=== PATIENT | female | born 1995 | race Caucasian/White ===

== ENCOUNTER → 2017-09-23 | Outpatient (REF) | payer OTHER ==
[~2017-09-23] MED LIST: HYDR-4309 PO
[2017-09-23 15:53] LABS: PLATELET COUNT, AUTOMATED 342 K/uL (150-450)
== END ==
PROVIDERS: ATTEND Family Medicine
DX: R10.9 Unspecified abdominal pain (principal)
CPT/HCPCS: 82040; 82247; 82310; 82374; 82435; 82565; 82947; 84075; 84132; 84155; 84295; 84450; 84460; 84520; 85025

== ENCOUNTER 2017-09-24 13:44 | Day surgery (SDC) | payer OTHER ==
[2017-09-24] MEDS ORDERED: FAMOTIDINE(*) 20MG/50ML PREMIX 50 ML IVPB ONE (13:50)
[2017-09-24] MEDS ORDERED: PIPERACILLIN/TAZO*3.375GM VIAL 3.375 GM in NS(*) 0.9% 100 ML ADDVANT BAG 100 ML IVPB ONE (13:50)
[2017-09-24] MEDS ORDERED: NORMOSOL R SOLN(*) 1000 ML BAG 1,000 ML IV PRN (13:50)
--- NOTE | 2017-09-24 13:59 | ER Report ---
History and Physical Time Seen By MD: 13:50 HPI/ROS CHIEF COMPLAINT: Right lower quadrant pain HISTORY OF PRESENT ILLNESS: This is a 22-year-old female presents to the emergency department for right lower quadrant pain. Patient was sent from urgent care for a positive appendicitis. Patient states she developed some generalized abdominal pain yesterday was sent home and instructed to return for worsening symptoms. Patient states that her symptoms increased in intensity today and localized to the right side, she didn't present to urgent care again, they did a contrast CT which was positive for appendicitis. Patient was recently sent to the emergency department. Dr. Mathis the general surgeon is aware and will be taking the patient to surgery. Patient has no other complaints , no fevers, no aches, no nausea or vomiting. No chest pain or shortness of breath. Continues to have right lower quadrant pain. Last food intake was at 10: 15, coffee and water. Last food around 8:00 this morning. REVIEW OF SYSTEMS: Constitutional: No fever, no chills. Eyes: No discharge. ENT: No sore throat. Cardiovascular: No chest pain, no palpitations. Respiratory: No cough, no shortness of breath. Gastrointestinal: As above. Genitourinary: No hematuria. Musculoskeletal: No back pain. Skin: No rashes. Neurological: No headache. Allergies: Coded Allergies: No Known Drug Allergies (Unverified , 09/24/17) Home Meds No Active Prescriptions or Reported Meds Past Medical/Surgical History The patient has a past medical and surgical history of wearing glasses, MRSA infection, abscess in right axilla. Reviewed Nurses Notes: Yes Physical Exam General Appearance: The patient is alert, has no immediate need for airway protection and no signs of toxicity. Eyes: Pupils equal and round no pallor or injection. ENT, Mouth: Mucous membranes are moist. Respiratory: There are no retractions, lungs are clear to auscultation. Cardiovascular: Regular rate and rhythm, no murmurs, clicks or rubs. Gastrointestinal: Abdomen is soft and tenderness to McBurney's point, no masses , bowel sounds normal. Neurological: Alert and oriented 4. Moving all extremities. Following all commands. No focal neuro deficits. Skin: Warm and dry, no rashes. Musculoskeletal: Neck is supple non tender. Extremities are nontender, nonswollen and have full range of motion. DIFFERENTIAL DIAGNOSIS: After history and physical exam differential diagnosis was considered for abdominal pain in a female including but not limited to ovarian cyst, pelvic inflammatory disease, ovarian torsion, urinary tract infection, and appendicitis. Medical Decision Making EKG/Imaging Imaging Location: [facility] - [place], [place] Patient: Lynette Moyer : 1995 Visit/Account:[id number] Date of Sevice: 09/24/2017 ABDOMEN/PELVIS WITH CONTRAST HISTORY: Abdominal pain TECHNIQUE: CT abdomen and pelvis with intravenous contrast. One of the following dose optimization techniques was utilized in the performance of this exam: Automated exposure control; adjustment of the mA and/ or kV according to the patient's size; or use of an iterative reconstruction technique. Specific details can be referenced in the facility's radiology CT exam operational policy. CONTRAST: 75 mL Isovue-370. COMPARISON: None. FINDINGS: Visualized lung bases: Negative. Hepatobiliary: Negative. Spleen: Negative. Adrenals: Negative. Pancreas: Negative. Kidneys/: Note is made of an intrauterine device which appears to be in satisfactory position. Right ovarian cyst measuring up to 2.1 cm. Cystic focus centered along the urethra measuring up to 10 mm (image 133 of series 2). Otherwise negative GI: Mild nonspecific colonic wall thickening. Appendix is enlarged and inflamed measuring up to 9 mm in diameter. There is moderate periappendiceal inflammation with mild periappendiceal inflammation. No adjacent free fluid or free air. Vessels/spaces/nodes: Small volume free fluid within the pelvis. Multiple small right lower quadrant lymph nodes. Bones/soft tissues: Negative. IMPRESSION: 1. Appendicitis without perforation. 2. Small volume free fluid within the pelvis, likely reactive or physiologic. 3. Mild circumferential thickening of the colon which may be related to underdistention. Cannot completely exclude mild/early infectious/inflammatory colitis. 4. Cystic focus centered along the urethra which may represent nonspecific prominence of the urethra or a urethral diverticulum. 5. Additional incidental/chronic findings, as above. Results were discussed with ADEN BARRETT at 09/24/2017 1:23 PM. Report Dictated By: Wolfgang Toledo MD at 09/24/2017 1:12 PM Report E-Signed By: Wolfgang Toledo MD at 09/24/2017 1:23 PM WSN:[id number] ED Course/Re-evaluation Clinical Indication for ER IV: Hydration, IV Access ED Course The patient was admitted to room. A history physical were obtained. Differential diagnoses were considered. The patient did come in with a diagnosis of appendicitis on CT scan. The general surgeon Dr. Mathis was contacted by urgent care, the patient was orally sent to the emergency department, an IV was started, so sent was given in the emergency department,. Patient states her pain is around a 2 out of 10 and does not require pain medications at this time. The patient has been evaluated by Dr. Mathis. The patient does understand that she will be going to surgery, the patient had no other questions or concerns at this time and was admitted to the operating room for acute appendicitis. Decision to Disposition Date: Sep 24, 2017 Decision to Disposition Time: 14:12 Depart Departure Impression: Primary Impression: Appendicitis Condition: Improved Disposition: ADMIT FROM ER TO OR New Scripts No Active Prescriptions or Reported Meds Problem Qualifiers Primary Impression: Appendicitis Appendicitis type: acute appendicitis Acute appendicitis type: with localized peritonitis Qualified Codes: K35.3 - Acute appendicitis with localized peritonitis BRAXTON GRAHAM-BRANDIN Sep 24, 2017 13:59
--- NOTE | 2017-09-24 14:29 | Gen Surgery History & Physical ---
History of Present Illness Chief Complaint RLQ pain History of Present Illness This 22 year old previously healthy female developed periumbilical pain yesterday morning. She was seen at urgent care and found to have negative urine test and normal WBC. She was advised to follow up today if the pain persisted. She reports the pain had moved to the RLQ. This is made worse with movement. No palliative factors other than lying still. She reports some nausea and anorexia. She denies vomiting or diarrhea. She was reevaluated at urgent care and sent for a CT scan that showed nonperforated appendicitis. She is now admitted for outpatient laparoscopic appendectomy. Zosyn 3.375 gm IV given in ED. 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 Home Meds No Active Prescriptions or Reported Meds Allergies: Coded Allergies: No Known Drug Allergies (Unverified , 09/24/17) Review of Systems All Systems Reviewed/Normal: Yes, Except as Noted Gastrointestinal: Nausea, Abdominal Pain Exam General Appearance: Alert, Awake, No Acute Distress, Afebrile Neuro: No Gross deficits Eyes: PERRLA ENT: Moist Mucous Membranes Cardiovascular: Regular Rate and Rhythm Respiratory: No Respiratory Distress, Clear to Auscultation GI: Other (Abdomen is soft, tender in RLQ with rebound and percussion tenderness, positive Rovsings sign, BS present ) Extremities: Soft and Non Tender, Pulses Psych: Alert & Oriented X3, Appropriate Mood & Affect Medical Decision Making Data Points Urine preganancy test at Urgent Care was negative, WBC at urgent care reported as WNL. EKG / Imaging Imaging CT shows inflamed appendix, no evidence of perforation. Pre-Admit Course ED Medications Zosyn 3.375 gm Medical Record Review: Yes Assessment and Plan Problems: (1) Appendicitis Status: Acute Assessment & Plan: I have reviewed in detail with patient the diagnosis of appendicitis, the treatment options, and the planned procedure of laparoscopic appendectomy as well as risks and possible complications. Lynette has had all her questions answered and wished to proceed with surgery. Informed consent obtained. Time Spent: > 30 min Venous Thromboembolism VTE Risk Physician Assess for VTE Risk: Yes Patient's VTE Risk: Low VTE Diagnostic Test 2 Days Prior to Admit: No Antithrombotics Is Pt On Any Antithrombotics?: No Prophylaxis Tx Contraindicated Pharmacological Contraindicati: Pt at Low Risk for VTE Mechanical Contraindications: Pt at Low Risk for VTE Problem Qualifiers (1) Appendicitis: Appendicitis type: acute appendicitis Acute appendicitis type: with localized peritonitis Qualified Codes: K35.3 - Acute appendicitis with localized peritonitis STU YA MD Sep 24, 2017 14:29
[2017-09-24] MEDS ORDERED: BUPIV/EPI 0.25% 1:200,000 50ML INFIL ONE (14:35)
[2017-09-24] MEDS ORDERED: PROPOFOL EMUL(*) 10MG/ML 20 ML 40 ML ONE (15:27)
[2017-09-24] MEDS ORDERED: ONDANSETRON 4 MG/2 ML VIAL ONE (15:27)
[2017-09-24] MEDS ORDERED: DEXAMETHASONE SOD PHOS 10MG/ML ONE (15:27)
[2017-09-24] MEDS ORDERED: KETOROLAC 30 MG/ML VIAL ONE (15:27)
[2017-09-24] MEDS ORDERED: fentaNYL CITR 100 MCG/2 ML AMP ONE ×2 (15:28→16:12)
[2017-09-24] MEDS ORDERED: SUGAMMADEX SOD 500 MG/5 ML SDV ONE (15:42)
--- NOTE | 2017-09-24 16:07 | Post Operative Progress Note ---
Post Operative Progress Note Date: Sep 24, 2017 Time: 16:05 Surgeon: Del Anesthesia: General ET Pre-Op Diagnosis: appendicitis Post-Op Diagnosis: Appendicitis (AAST Grade 1) Findings: Retroperitoneal retrocecal appendix, inflammed, but no suppuration. Procedure(s): Laparoscopic appendectomy Specimen Removed:(May be N/A): yes, appendix sent to pathology Complications: none Estimated Blood Loss: < 10 ml Date OP Note Dictated: Sep 24, 2017 Time OP Note Dictated: 16:07 STU YA MD Sep 24, 2017 16:07
[2017-09-24] MEDS ORDERED: HYDR-4309 PO (16:15)
--- NOTE | 2017-09-24 16:20 | Short(Outpt) Discharge Summary ---
Discharge Summary Reason for Hosp/Final Diag: (1) Appendicitis Status: Acute Hospital Course & Plan: I have reviewed in detail with patient the diagnosis of appendicitis, the treatment options, and the planned procedure of laparoscopic appendectomy as well as risks and possible complications. Lynette has had all her questions answered and wished to proceed with surgery. Informed consent obtained. Departure Discharge to: Home Discharge Instructions Home Meds Active Scripts Hydrocodone Bit/Acetaminophen (NORCO 5-325 TABLET) 1 Each Tablet, 1 EACH PO q 4hours prn for PAIN, #20 TAB 0 Refills Prov:STU YA MD 09/24/17 Follow up Referrals: General Surgery @ [facility] Diet: Regular Activity: No Heavy Lifting (for 7-10 days) Special Instructions: Call for fever, chills, redness of incisions, vomiting, or increasing pain. Call Dr. Galindo's office to be seen in the clinic in 7-10 days. Copies to: JO GALINDO MD Problem Qualifiers (1) Appendicitis: Appendicitis type: acute appendicitis Acute appendicitis type: with localized peritonitis Qualified Codes: K35.3 - Acute appendicitis with localized peritonitis STU YA MD Sep 24, 2017 16:20
[2017-09-24] MEDS ORDERED: APAP/HYDROCODONE 325/5 TAB ONE (16:47)
[2017-09-24 17:00] VITALS: BP 117/78
[2017-09-24 17:15] VITALS: BP 110/76
[2017-09-24 17:30] VITALS: BP 108/81
[2017-09-24 18:05] VITALS: BP 123/84
[2017-09-24 18:07] VITALS: BP 109/81
--- NOTE | 2017-09-25 14:00 | OPERATIVE REPORT 1 ---
EVENT DATE: September 24, 2017 SURGEON: Dhiraj Mathis MD ANESTHESIOLOGIST: Aldair Miller MD ANESTHESIA: General endotracheal. 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 PREOPERATIVE DIAGNOSIS Acute appendicitis. POSTOPERATIVE DIAGNOSIS Acute appendicitis, AAST grade 1 appendicitis. PROCEDURE PERFORMED Laparoscopic appendectomy. PROCEDURE IN DETAIL The patient was taken to the operating room, placed in the supine position after induction of adequate general endotracheal anesthesia. The abdomen was prepped and draped in usual sterile fashion. A time out was taken. All necessary equipment was present. Patient was properly identified, and the patient had received Zosyn. Attention was then turned to the umbilicus. An incision was made at the infraumbilical fold. This was carried through the skin and subcutaneous tissue. The midline fascia was then incised. Under direct visualization, the peritoneal cavity was entered. A [id number] #0- Vicryl suture was placed in the fascia. A 10/12 trocar was then placed under direct visualization. A pneumoperitoneum was created. The laparoscope was then introduced. General exploration was remarkable for an adhesion of the omentum along the right colon. Two 5 mm ports were then placed, one in the right upper quadrant, one in the left lower quadrant. Using the harmonic scalpel, these adhesions were taken down. Once this was completed, the appendix , which was noted on CAT scan to be retroperitoneal, retrocecal, was then approached. The white line of Toldt was then incised with the harmonic scalpel , mobilizing the cecum. This then allowed for visualization of the appendix. It was inflamed, but there was no evidence of separation of perforation. The appendix was then dissected free from its surrounding tissues. The mesoappendix was divided with the harmonic scalpel. Using an EndoGIA stapling device with a white load, the appendiceal base was then stable from the cecum with a single load. The appendix was then placed in an Endo pouch and removed via the umbilical port. The port was returned to peritoneal cavity, peritoneum reinsufflated. Using irrigation, the right lower quadrant was irrigated with copious amounts of saline. There was a bleeder noted from the staple line, which was controlled with two 5 mm clips. Once adequate hemostasis was achieved , the remainder of the peritoneal cavity was irrigated with copious amounts of saline. This was evacuated. Exploration of the pelvis was remarkable for normal-appearing right tube and ovary. There was no other pathology noted. The pneumoperitoneum was then evacuated. All trocars were removed under direct visualization, adequate hemostasis noted. The umbilical port was closed with the #0-Vicryl suture. An additional #0-Vicryl suture was placed. All wounds were then infiltrated with 0.25% Marcaine with epinephrine for postop pain control. The skin of all wounds were closed with simple running 4-0 Monocryl subcuticular suture. Dermabond was applied. Final sponge, instrument and needle count were correct x 2. The patient tolerated this well, was taken to the PACU in stable condition. She will be discharged home, followed as an outpatient. Wound care and after care instructions are provided. Discharge medication was [place] 1-2 q.4 hours p.r.n. pain #20. MTDD
== END 2017-09-24 17:00 | disposition home or self-care (01) ==
LOC: ER 13:48 → OR 14:03
PROVIDERS: ATTEND Surgery
DX: K35.3 Acute appendicitis with localized peritonitis (principal)
CPT/HCPCS: 44970; 88304; 96365; 96375; 99284; J1100; J1885; J2405; J2543; J2704; J3010; J3490; J7050

== ENCOUNTER → 2017-09-24 | Outpatient (CLI) | payer OTHER ==
[~2017-09-24] MED LIST changes: +IOPAMIDOL 76% 100 ML INFUS BTL 100 ML ONE
--- NOTE | 2017-09-24 13:26 | RADIOLOGY IMAGING REPORT ---
FACILITY: [facility] [place] PATIENT NAME: Lynette Moyer : 1995 MR: [id number] V: [id number] EXAM DATE: ORDERING PHYSICIAN: ADEN BARRETT TECHNOLOGIST: Location: [facility] Patient: Lynette Moyer : 1995 Visit/Account:[id number] Date of Sevice: 09/24/2017 ABDOMEN/PELVIS WITH CONTRAST HISTORY: Abdominal pain TECHNIQUE: CT abdomen and pelvis with intravenous contrast. One of the following dose optimization techniques was utilized in the performance of this exam: Autom ated exposure control; adjustment of the mA and/or kV according to the patient's size; or use of an i terative reconstruction technique. Specific details can be referenced in the facility's radiology C T exam operational policy. CONTRAST: 75 mL Isovue-370. COMPARISON: None. FINDINGS: Visualized lung bases: Negative. Hepatobiliary: Negative. Spleen: Negative. Adrenals: Negative. Pancreas: Negative. Kidneys/: Note is made of an intrauterine device which appears to be in satisfactory position. Rig ht ovarian cyst measuring up to 2.1 cm. Cystic focus centered along the urethra measuring up to 10 m m (image 133 of series 2). Otherwise negative GI: Mild nonspecific colonic wall thickening. Appendix is enlarged and inflamed measuring up to 9 mm in diameter. There is moderate periappendiceal inflammation with mild periappendiceal inflammation. No adjacent free fluid or free air. Vessels/spaces/nodes: Small volume free fluid within the pelvis. Multiple small right lower quadrant lymph nodes. Bones/soft tissues: Negative. IMPRESSION: 1. Appendicitis without perforation. 2. Small volume free fluid within the pelvis, likely reactive or physiologic. 3. Mild circumferential thickening of the colon which may be related to underdistention. Cannot compl etely exclude mild/early infectious/inflammatory colitis. 4. Cystic focus centered along the urethra which may represent nonspecific prominence of the urethra or a urethral diverticulum. 5. Additional incidental/chronic findings, as above. Results were discussed with ADEN BARRETT at 09/24/2017 1:23 PM. Report Dictated By: Wolfgang Toledo MD at 09/24/2017 1:12 PM Report E-Signed By: Wolfgang Toledo MD at 09/24/2017 1:23 PM WSN:[id number]
== END ==
LOC: CT 12:14
PROVIDERS: ATTEND Family Medicine
DX: K37 Unspecified appendicitis (principal)
CPT/HCPCS: 74177; Q9967